=== PATIENT | male | born 1935 | race Caucasian/White ===

== ENCOUNTER 2020-04-26 16:35 | Inpatient (IN) ==
[2020-04-26] MEDS ORDERED: *HR* Promethazine 25 MG/ML VIAL IVP PRN (18:22)
[2020-04-26] MEDS ORDERED: Dextrose Gel 15 GM/37.5 ML TUBE PO PRN ×2 (18:41)
[2020-04-26] MEDS ORDERED: D5% in Water 1,000 ML IVC PRN (18:41)
[2020-04-26] MEDS ORDERED: *HR* Dextrose 50 % in Water (Vial) 50 ML VIAL IVP PRN (18:41)
[2020-04-26] MEDS: MethylPREDNISolone 40 MG/ML VIAL IVP SCH (18:57)
[2020-04-26] MEDS: Azithromycin 500 MG in 0.9 % Sodium Chloride 250 ML IVPB SCH (18:57)
[2020-04-26] MEDS: Insulin LISPRO 300 UNITS/3 ML VIAL SQ SCH ×2 (18:58→21:08)
[2020-04-26] MEDS ORDERED: Ringers Solution, Lactated 500 ML IVC ONE (19:22)
[2020-04-26] MEDS: Ipratropium/Albuterol Neb 3 ML IH SCH ×2 (20:10→23:54)
[2020-04-26] MEDS ORDERED: Insulin DETEMIR 100 UNIT/ML X5UNITS SQ SCH (21:00)
[2020-04-27 02:05] LABS: Adenovirus Not Detected (Not Detect); Bordetella Pertussis Not Detected (Not Detect); Chlamydophila pneumoniae Not Detected (Not Detect); Coronavirus 229E Not Detected (Not Detect); Coronavirus HKU1 Not Detected (Not Detect); Coronavirus NL63 Not Detected (Not Detect); Coronavirus OC43 Not Detected (Not Detect); Human Metapneumovirus Not Detected (Not Detect); Human Rhinovirus/Enterovirus Not Detected (Not Detect); Influenza A Subtype 2009 H1 Not Detected (Not Detect); Influenza B Not Detected (Not Detect); Mycoplasma pneumoniae Not Detected (Not Detect); Parainfluenza Virus 1 Not Detected (Not Detect); Parainfluenza Virus 2 Not Detected (Not Detect); Parainfluenza Virus 3 Not Detected (Not Detect); Parainfluenza Virus 4 Not Detected (Not Detect); Respiratory Syncytial Virus Not Detected (Not Detect); SARS-CoV-2 Not Detected (Not Detect)
[2020-04-27] MEDS: Ipratropium/Albuterol Neb 3 ML IH SCH ×6 (03:42→23:20)
[2020-04-27 04:44] LABS: Hematocrit 33.3 % (37.5-50.1); Hemoglobin 10.6 g/dL (12.9-16.9); Mean Corpuscular HGB Conc 31.8 g/dL (31.6-35.5); Mean Corpuscular Hemoglobin 30.2 pg (28.0-33.3); Mean Corpuscular Volume 94.9 fL (83.0-100.0); Mean Platelet Volume 9.9 fL (9.4-12.4); Platelet Count 288 K/mcL (140-400); Red Blood Count 3.51 M/mcL (4.19-5.50); Red Cell Distribution Width 14.6 % (11.5-14.5); White Blood Count 11.7 K/mcL (4.3-11.1)
[2020-04-27 05:03] LABS: Calcium 9.1 mg/dL (8.6-10.3); Potassium 3.9 mEq/L (3.5-5.1)
[2020-04-27] MEDS: MethylPREDNISolone 40 MG/ML VIAL IVP SCH ×2 (05:37→17:25)
[2020-04-27] MEDS: Insulin LISPRO 300 UNITS/3 ML VIAL SQ SCH ×4 (08:33→20:07)
[2020-04-27] MEDS: Insulin DETEMIR 100 UNIT/ML X5UNITS SQ SCH ×2 (08:34→20:10)
[2020-04-27] MEDS: Furosemide 40 MG TABLET PO SCH (08:34)
[2020-04-27] MEDS: *HR* Heparin 5,000 UNIT/ML VIAL SQ SCH (17:25)
[2020-04-27] MEDS: Azithromycin 500 MG in 0.9 % Sodium Chloride 250 ML IVPB SCH (18:45)
[2020-04-27] MEDS: GuaiFENesin/Codeine Oral Soln 5 ML UDC PO PRN (18:45)
[2020-04-28] MEDS: Ipratropium/Albuterol Neb 3 ML IH SCH ×6 (03:41→23:43)
[2020-04-28] MEDS: MethylPREDNISolone 40 MG/ML VIAL IVP SCH ×2 (05:13→18:09)
[2020-04-28] MEDS: GuaiFENesin/Codeine Oral Soln 5 ML UDC PO PRN ×2 (05:14→20:29)
[2020-04-28] MEDS: *HR* Heparin 5,000 UNIT/ML VIAL SQ SCH ×2 (05:14→18:10)
[2020-04-28 06:01] LABS: ABG Base Excess 4 mEq/L (-2 to 3); ABG HCO3 29 mEq/L (21-27); ABG Oxygen Saturation 97 % (95-98); ABG PCO2 43 mmHg (35-45); ABG PH 7.43 pH Units (7.32-7.45); ABG PO2 85 mmHg (85-104); ABG TCO2 30 mEq/L (20-26); Blood Gas Modality 4LPM
[2020-04-28] MEDS: Insulin LISPRO 300 UNITS/3 ML VIAL SQ SCH ×4 (08:21→21:55)
[2020-04-28] MEDS: Furosemide 40 MG TABLET PO SCH (10:22)
[2020-04-28] MEDS: Insulin DETEMIR 100 UNIT/ML X5UNITS SQ SCH ×2 (10:24→21:57)
[2020-04-28 10:27] LABS: Basophils % 0.1 %; Hematocrit 32.5 % (37.5-50.1); Hemoglobin 10.3 g/dL (12.9-16.9); Immature Granulocytes % 0.7 % (0-4); Lymphocytes # 0.4 K/mcL (0.6-4.6); Lymphocytes % 3.6 %; Mean Corpuscular HGB Conc 31.7 g/dL (31.6-35.5); Mean Corpuscular Hemoglobin 29.6 pg (28.0-33.3); Mean Corpuscular Volume 93.4 fL (83.0-100.0); Mean Platelet Volume 9.8 fL (9.4-12.4); Monocytes # 0.6 K/mcL (0.0-1.3); Monocytes % 4.9 %; Neutrophils # 10.4 K/mcL (1.6-8.9); Platelet Count 298 K/mcL (140-400); Red Blood Count 3.48 M/mcL (4.19-5.50); Segmented Neutrophils % 90.7 %; White Blood Count 11.5 K/mcL (4.3-11.1)
[2020-04-28 10:44] LABS: Potassium 3.7 mEq/L (3.5-5.1)
[2020-04-28 10:45] LABS: Calcium 8.5 mg/dL (8.6-10.3); Magnesium 2.1 mg/dL (1.6-2.6)
[2020-04-28] MEDS: Azithromycin 500 MG in 0.9 % Sodium Chloride 250 ML IVPB SCH (20:26)
[2020-04-29] MEDS: Ipratropium/Albuterol Neb 3 ML IH SCH ×4 (04:27→15:50)
[2020-04-29] MEDS: MethylPREDNISolone 40 MG/ML VIAL IVP SCH (05:42)
[2020-04-29] MEDS: *HR* Heparin 5,000 UNIT/ML VIAL SQ SCH (05:42)
[2020-04-29 06:08] LABS: Basophils % 0.1 %; Hematocrit 34.6 % (37.5-50.1); Hemoglobin 10.7 g/dL (12.9-16.9); Immature Granulocytes % 0.7 % (0-4); Lymphocytes # 0.8 K/mcL (0.6-4.6); Lymphocytes % 9.2 %; Mean Corpuscular HGB Conc 30.9 g/dL (31.6-35.5); Mean Corpuscular Hemoglobin 30.1 pg (28.0-33.3); Mean Corpuscular Volume 97.2 fL (83.0-100.0); Mean Platelet Volume 9.6 fL (9.4-12.4); Monocytes # 0.7 K/mcL (0.0-1.3); Monocytes % 7.8 %; Neutrophils # 6.9 K/mcL (1.6-8.9); Platelet Count 272 K/mcL (140-400); Red Blood Count 3.56 M/mcL (4.19-5.50); Red Cell Distribution Width 14.7 % (11.5-14.5); Segmented Neutrophils % 82.2 %; White Blood Count 8.4 K/mcL (4.3-11.1)
[2020-04-29 06:27] LABS: BUN/Creatinine Ratio 36 (6-26); Blood Urea Nitrogen 45 mg/dL (8-23); Calcium 8.8 mg/dL (8.6-10.3); Carbon Dioxide 31 mEq/L (23-29); Chloride 105 mEq/L (98-107); Glucose 102 mg/dL (70-105); Osmolality,Calculated 306 (280-300); Potassium 3.6 mEq/L (3.5-5.1); Sodium 142 mEq/L (136-145); eGFR For African Americans > 60 (> 60); eGFR For Non-African Americans 54 (> 60)
[2020-04-29] MEDS: Insulin LISPRO 300 UNITS/3 ML VIAL SQ SCH ×2 (08:07→12:00)
[2020-04-29] MEDS: Furosemide 40 MG TABLET PO SCH (08:24)
[2020-04-29] MEDS: Insulin DETEMIR 100 UNIT/ML X5UNITS SQ SCH (08:25)
[2020-04-29 11:35] VITALS: BP 120/71
[2020-04-29] MEDS ORDERED: FLU Vac QV 20-21 (6Month+)/PF 0.5 ML SYRINGE IM ONE (15:17)
== END 2020-04-29 17:21 | disposition other institution (70) | DRG 191 ==
LOC: CDU → SUATTDRO 17:47 → 2ANU 18:41
PROVIDERS: ADMIT Internal Medicine; ATTEND Internal Medicine